=== PATIENT | male | born 1990 | race Caucasian/White ===

== ENCOUNTER → 2017-02-20 | Outpatient (CLI) | payer OTHER ==
--- NOTE | 2017-02-20 14:56 | RAD ---
Scrotal ultrasound, 02/20/2017: History: Left scrotal mass The right testicle measures 4.6 x 2.2 x 3.0 cm while the left testicle measures 4.2 x 2.0 x 3.0 cm. There is no evidence of a testicular mass. Symmetric blood flow is present within both testicles. There is a 4 mm cyst in the right epididymis. A small hydrocele is present on the right. There is a 2.7 cm cyst in the left epididymis. It contains a small septation, or it may represent a cluster of 2 cysts. No other abnormality is detected. IMPRESSION: 1. Moderate sized left epididymal cyst. 2. Tiny right epididymal cyst. 3. Small right hydrocele. 4. No testicular abnormality is detected.
== END | disposition home or self-care (01) ==
LOC: US 12:52
PROVIDERS: ATTEND Family Medicine
DX: N43.3 Hydrocele, unspecified (principal); N50.3 Cyst of epididymis
CPT/HCPCS: 76870